=== PATIENT | female | born 2005 | race Caucasian/White ===

== ENCOUNTER 2023-10-01 00:35 | Emergency (ER) | payer OTHER ==
--- NOTE | 2023-10-01 00:43 | ED ---
General Adult HPI - General Chief complaint: Abdominal Pain Stated complaint: abd pain Time Seen by Provider: 10/01/23 00:41 Source: patient Mode of arrival: ambulatory Limitations: no limitations - History of Present Illness Initial comments: Dictation was produced using [employer] dictation software. please excuse any grammatical, word or spelling errors. Chief Complaint: 18-year-old female presents for rule out ovarian torsion History of Present Illness: Patient 18-year-old female she was seen at [facility] for left lower quadrant abdominal pain x 4 days. She had a CT performed showed a complex cyst measuring 5 cm to the left ovary. She has had waxing and waning pain which seems to be positional. At rest she does not have any pain. She was seen by nurse practitioner at [facility] who felt that patient needed to be transferred here for ultrasound to rule out ovarian torsion. The ROS documented in this emergency department record has been reviewed and confirmed by me. Those systems with pertinent positive or negative responses have been documented in the HPI. All other systems are other negative and/or noncontributory. - Related Data Allergies Allergy/AdvReac Type Severity Reaction Status Date / Time diphenhydramine Allergy Anaphylaxis Verified 10/01/23 00:42 [From Benadryl] Review of Systems ROS Statement: Those systems with pertinent positive or pertinent negative responses have been documented in the HPI. ROS Other: All systems not noted in ROS Statement are negative. Past Medical History Past Medical History: No Reported History History of Any Multi-Drug Resistant Organisms: None Reported Past Surgical History: No Surgical Hx Reported Past Psychological History: No Psychological Hx Reported Smoking Status: Vaper Past Alcohol Use History: None Reported Past Drug Use History: None Reported General Exam - General Exam Comments Initial Comments: PHYSICAL EXAM: General Impression: Alert and oriented x3, not in acute distress HEENT: Normocephalic atraumatic, extra-ocular movements intact, pupils equal and reactive to light bilaterally, mucous membranes moist. Cardiovascular: Heart regular rate and rhythm Chest: Able to complete full sentences, no retractions, no tachypnea Abdomen: abdomen soft, non-tender, non-distended, no organomegaly Musculoskeletal: Pulses present and equal in all extremities, no peripheral edema Motor: no focal deficits noted Neurological: CN II-XII grossly intact, no focal motor or sensory deficits noted Skin: Intact with no visualized rashes Psych: Normal affect and mood Limitations: no limitations Course Vital Signs 10/01/23 00:38 Temperature 97.8 F Pulse Rate 83 Respiratory 18 Rate Blood Pressure 133/78 O2 Sat by Pulse 98 Oximetry Medical Decision Making - Medical Decision Making Was pt. sent in by a medical professional or institution (, QUANG, DENTAL THERAPIST, urgent care, hospital, or [facility]...) When possible be specific @ -Transferred by nurse practitioner from [facility] for ultrasound Did you speak to anyone other than the patient for history (EMS, parent, family, police, friend...)? What history was obtained from this source @ -No Did you review nursing and triage notes (agree or disagree)? Why? @ -I reviewed and agree with nursing and triage notes Were old charts reviewed (outside hosp., previous admission, EMS record, old EKG, old radiological studies, urgent care reports/EKG's, [facility] records)? Report findings @ -No old charts were reviewed Differential Diagnosis (chest pain, altered mental status, abdominal pain women, abdominal pain men, vaginal bleeding, musculoskeletal, weakness, fever, dyspnea, syncope, headache, dizziness, GI bleed, back pain, seizure, CVA, palpatations, mental health)? @ -Differential Abdominal Pain Women: Appendicitis, Cholecystitis, diverticulosis, ischemic bowel, pancreatitis, hepatitis, UTI, gastroenteritis, AAA, incarcerated hernia, bowel obstruction, constipation, inflammatory bowel, hepatitis, peptic ulcer disease, splenic infarction, perforated viscus, vulvitis, ovarian torsion, PID, kidney stone, placenta abruption, this is not meant to be an all-inclusive list EKG interpreted by me (3pts min.). @ -None done X-rays interpreted by me (1pt min.). @ -None done CT interpreted by me (1pt min.). @ -None done U/S interpreted by me (1pt. min.). @ -Ultrasound shows good color flow Doppler to both ovaries What testing was considered but not performed or refused? (CT, X-rays, U/S, labs)? Why? @ -None What meds were considered but not given or refused? Why? @ -None Did you discuss the management of the patient with other professionals ( professionals i.e. QUANG Wilks, DENTAL THERAPIST, lab, RT, psych nurse, social media marketer, rn medication, teacher, ambulance officer, case packer)? Give summary @ -No Was smoking cessation discussed for >3mins.? @ -No Was critical care preformed (if so, how long)? @ -No Were there social determinants of health that impacted care today? How? (Homelessness, low income, unemployed, alcoholism, drug addiction, transportation, low edu. Level, literacy, decrease access to med. care, usp, rehab)? @ -No Was there de-escalation of care discussed even if they declined (Discuss DNR or withdrawal of care, Hospice)? DNR status @ -No What co-morbidities impacted this encounter? (DM, HTN, Smoking, COPD, CAD, Cancer, CVA, ARF, Chemo, Hep., AIDS, mental health diagnosis, sleep apnea, morbid obesity)? @ -None Was patient admitted / discharged? Hospital course, mention meds given and route, prescriptions, significant lab abnormalities, going to OR and other pertinent info. @ -18-year-old female presents to the emergency department for ultrasound to rule out ovarian torsion. Patient has been having abdominal pain that seems to be positional worse when standing up. She is well-appearing at the bedside. Physical examination is benign. She has a nonsurgical abdomen and a nondistressed presentation. Vital signs stable. Ultrasound is negative for ovarian torsion. Patient likely having symptomatic cyst. Patient referral to [facility] for outpatient management of ovarian cyst Undiagnosed new problem with uncertain prognosis? @ -No Drug Therapy requiring intensive monitoring for toxicity (Heparin, Nitro, Insulin, Cardizem)? @ -No Were any procedures done? @ -No Diagnosis/symptom? Acute, or Chronic, or Acute on Chronic? Uncomplicated (without systemic symptoms) or Complicated (systemic symptoms)? @ -Ovarian cyst Side effects of treatment? @ -No Exacerbation, Progression, or Severe Exacerbation? @ -No Poses a threat to life or bodily function? How? (Chest pain, [place], [place], pneumonia, PE, COPD, DKA, ARF, appy, cholecystitis, CVA, Diverticulitis, Homicidal, Suicidal, threat to staff... and all critical care pts) @ -No Disposition Clinical Impression: Ovarian cyst Disposition: HOME SELF-CARE Condition: Good Instructions (If sedation given, give patient instructions): Ovarian Cyst (ED) Is patient prescribed a controlled substance at d/c from ED?: No Referrals: Flaco Patel MD [STAFF PHYSICIAN] - 1-2 days Time of Disposition: 01:32
[2023-10-01 00:58] VITALS: BP 133/78; PULSE 83; RESP 18; TEMP 97.8
--- NOTE | 2023-10-01 01:24 | US ---
EXAMINATION TYPE: US pelvic complete DATE OF EXAM: 10/01/2023 COMPARISON: NONE CLINICAL INDICATION: Female, 18 years old with history of rule out ovarian torsion; Sent here from [facility]. CT showed a complex cyst and ff in adnexa TECHNIQUE: . Transabdominal sonographic images of the pelvis were acquired. Pt refused a transvag inal exam Date of LMP: 09/10/23 EXAM MEASUREMENTS: Uterus: 7.6 x 4.5 x 3.0 cm Endometrial Stripe: 0.5 cm Right Ovary: 3.3 x 1.7 x 2.2 cm Left Ovary: 5.5 x 5.4 x 4.1 cm 1. Uterus: Anteverted wnl 2. Endometrium: wnl 3. Right Ovary: wnl 4. Left Ovary: Nonsimple cyst seen measuring 4.5 x 4.2 x 3.3cm Spectral, color and waveform doppler imaging shows good arterial and venous flow within the ovaries . 5. Bilateral Adnexa: Free fluid seen in left adnexa 6. Posterior cul-de-sac: wnl Anteverted uterus. Nonsimple 4.5 cm thin-walled cyst or cystic lesion with thin septa in the left ova ry is present. Some adjacent free fluid in the left pelvis is seen. IMPRESSION: Slightly suboptimal study due to patient refusing transvaginal investigation. There is sa tisfactory blood flow to both ovaries seen. There is O-Rads 2 lesion left ovary noted. Nonemergent Fo llow-up ultrasound in 6 months time is advised.
== END 2023-10-01 01:42 | disposition home or self-care (01) ==
LOC: EC 00:35
DX: N83.202 Unspecified ovarian cyst, left side (principal); F17.290 Nicotine dependence, other tobacco product, uncomplicated; Z88.8 Allergy status to other drugs, medicaments and biological substances
CPT/HCPCS: 76856; 93975; 99284